=== PATIENT | male | born 1955 | race Caucasian/White ===

== ENCOUNTER 2018-02-24 09:19 | Day surgery (SDC) | payer BC ==
[~2018-02-24] VITALS: Ht 177.8 cm; Wt 126.4 kg
[~2018-02-24 09:19] MED LIST: ASPIR 8181 M1 PO; COZAAR50 MG PO; FLONASE16 G1 BOTH NARES; LIPITOR80 MG PO; LOPRESSOR50 MG PO; ZYRTEC10 M3 PO
[2018-02-24 20:31] VITALS: BP 135/88
[2018-02-24 23:52] VITALS: BP 145/74
[2018-02-25 04:18] VITALS: BP 122/71
[2018-02-25 08:06] VITALS: BP 155/81
[2018-02-25 11:38] VITALS: BP 139/77
[2018-02-25] MEDS ORDERED: PERCOCET 7.51 TABLET PO (13:28)
[2018-02-25] MEDS ORDERED: ZOFRAN4 MG PO (13:30)
[2018-02-25] MEDS ORDERED: ZANAFLEX4 M1 PO (13:30)
== END 2018-02-25 13:56 | disposition home or self-care (01) ==
LOC: SDC 09:19 → 3EAST 15:49 → 2SOUTH 15:49 → ENRESERV 15:50 → 3EAST 20:08
PROVIDERS: Neurological Surgery
PROC: 01NB0ZZ Release Lumbar Nerve, Open Approach (ICD-10-PCS; principal; 2018-02-24)
DX: M48.061 Spinal stenosis, lumbar region without neurogenic claudication (principal); M51.16 Intervertebral disc disorders with radiculopathy, lumbar region; E66.01 Morbid (severe) obesity due to excess calories; Z68.37 Body mass index [BMI] 37.0-37.9, adult; I10 Essential (primary) hypertension; E78.5 Hyperlipidemia, unspecified; I25.10 Atherosclerotic heart disease of native coronary artery without angina pectoris; G47.30 Sleep apnea, unspecified; I77.9 Disorder of arteries and arterioles, unspecified; I71.4 Abdominal aortic aneurysm, without rupture; Z95.5 Presence of coronary angioplasty implant and graft
CPT/HCPCS: 72020; 76000; 82948; G0378; J0131; J0330; J1100; J1170; J2250; J2405; J2710; J2930; J3010; J3370; J3480; J7643; S0020